=== PATIENT | male | born 1980 | race Caucasian/White ===

== ENCOUNTER 2020-07-26 00:16 | Emergency (ER) | payer BC ==
[~2020-07-26] VITALS: Ht 188 cm; Wt 95.0 kg
[2020-07-26 00:25] VITALS: TEMP 98.3
[2020-07-26 00:54] LABS: HEMATOCRIT 48.9 % (42.0-52.0); HEMOGLOBIN 17.9 g/dl (13.5-18.0); MEAN CELL VOLUME 82 fl (80.0-100.0); MEAN CORPUSCULAR HEMOGLOBIN 30 pg (27.0-31.0); MEAN CORPUSCULAR HGB CONC 37 g/dl (33.0-37.0); MEAN PLATELET VOLUME 10.8 fl (7.4-10.4); PLATELET COUNT 227 K/mm3 (130-400); REDCELL DISTRIBUTION WIDTH-CV 11.5 % (11.5-14.5)
[2020-07-26 01:08] LABS: ALBUMIN 4.6 gm/dL (3.5-5.0); BILIRUBIN,TOTAL 1.9 mg/dL (0.0-1.0); C-REACTIVE PROTEIN 3.1 mg/dL (0.0-0.9); CALCIUM 9.7 mg/dL (8.4-10.2); CREATININE, serum 0.87 (0.66-1.25); POTASSIUM 3.3 mmol/L (3.4-5.0); TOTAL PROTEIN 8.7 gm/dL (6.4-8.2)
[2020-07-26 01:17] LABS: TROPONIN-I 34.1 ng/mL (0.000-0.035)
[2020-07-26 01:19] LABS: LYMPHOCYTE 16 % (20.0-51.0); NEUTROPHILS 71 % (42.0-75.2); PLATELET ESTIMATE NORMAL (NORMAL)
[2020-07-26 01:35] LABS: TSH w REFLEX 1.78 uIU/mL (0.465-4.680)
[2020-07-26 01:47] VITALS: BP 133/91; PULSE 143
== END 2020-07-26 01:49 | disposition short-term general hospital (02) ==
LOC: COL.ER 00:16
PROVIDERS: Emergency Medicine
DX: I31.9 Disease of pericardium, unspecified (principal); Z20.822 Contact with and (suspected) exposure to COVID-19
CPT/HCPCS: J1885; J2543

== ENCOUNTER → 2020-08-19 | Outpatient (CLI) | payer BC | LOC: COL.LAB 08:53 | DX: Z01.812 Encounter for preprocedural laboratory examination (principal); Z20.822 Contact with and (suspected) exposure to COVID-19 ==

== ENCOUNTER 2020-10-15 14:14 | Outpatient (RCR) | payer BC | END 2020-10-25 15:48 | disposition home or self-care (01) | LOC: COL.CR 14:14 | DX: Z48.812 Encounter for surgical aftercare following surgery on the circulatory system (principal); Z95.5 Presence of coronary angioplasty implant and graft ==

== ENCOUNTER 2021-10-21 10:23 | Emergency (ER) | payer SELFPAY ==
[~2021-10-21] VITALS: Ht 185.4 cm; Wt 97.7 kg
[2021-10-21 10:34] VITALS: TEMP 97.7
[2021-10-21] MEDS ORDERED: PRINIVIL2.5 MG PO (10:36)
[2021-10-21] MEDS ORDERED: TOPROL XL 25MG25 MG PO (10:36)
[2021-10-21] MEDS ORDERED: LIPITOR 40MG TA40 MG PO (10:36)
[2021-10-21] MEDS ORDERED: PLAVIX 75MG TAB75 MG PO (10:37)
[2021-10-21 11:14] LABS: BASO # 0.1 K/mm3 (0.0-0.2); BASO % 1.2 % (0.0-2.0); EOS # 0.1 K/mm3 (0.0-0.7); EOS % 1.9 % (0.0-4.0); GRAN # 3.8 K/mm3 (1.4-6.5); HEMATOCRIT 44.3 % (42.0-52.0); HEMOGLOBIN 16.3 g/dl (13.5-18.0); LYMPH # 2.5 K/mm3 (1.2-3.4); LYMPH % 34.3 % (20.0-51.0); MEAN CELL VOLUME 82 fl (80.0-100.0); MEAN CORPUSCULAR HEMOGLOBIN 30 pg (27-31); MEAN CORPUSCULAR HGB CONC 37 g/dl (33.0-37.0); MEAN PLATELET VOLUME 10.1 fl (7.4-10.4); MONO # 0.8 K/mm3 (0.1-0.6); MONO % 11.3 % (1.7-9.3); PLATELET COUNT 224 K/mm3 (130-400); RED BLOOD COUNT 5.39 M/mm3 (4.20-5.60); REDCELL DISTRIBUTION WIDTH-CV 11.1 % (11.5-14.5)
[2021-10-21 11:25] LABS: PROTHROMBIN TIME 11.4 SECONDS (9.7-12.8)
[2021-10-21 11:32] LABS: ALANINE AMINOTRANSFERASE 36 U/L (0-55); ALBUMIN 3.9 gm/dL (3.5-5.0); ALKALINE PHOSPHATASE 113 U/L (40-150); ANION GAP 12 mmol/L (7-16); AST,SGOT 27 U/L (5-34); BILIRUBIN,TOTAL 1.3 mg/dL (0.2-1.2); BLOOD UREA NITROGEN 17 mg/dL (9-21); CALCIUM 9.5 mg/dL (8.4-10.2); CARBON DIOXIDE 19 mmol/L (22-29); CHLORIDE 104 mmol/L (98-107); CREATININE, serum 0.88 mg/dL (0.72-1.25); GLUCOSE 256 mg/dL (70-99); POTASSIUM 4.1 mmol/L (3.5-4.5); SODIUM 135 mmol/L (136-145); TOTAL PROTEIN 7.4 gm/dL (6.2-8.1)
[2021-10-21 11:39] LABS: TROPONIN-I < 0.010 ng/mL (0.00-0.033)
[2021-10-21] MEDS ORDERED: ROBAXIN 75750 MG/TAB PO (15:40)
[2021-10-21] MEDS ORDERED: NORCO 325 MG-51 TAB PO (15:40)
[2021-10-21] MEDS ORDERED: TOPROL XL 50MG50 MG PO (15:42)
[2021-10-21 15:50] VITALS: BP 134/89; PULSE 106
== END 2021-10-21 15:50 | disposition home or self-care (01) ==
LOC: COL.ER 10:23
PROVIDERS: Physician Assistant
DX: S46.912A Strain of unspecified muscle, fascia and tendon at shoulder and upper arm level, left arm, initial encounter (principal); I10 Essential (primary) hypertension; Z95.5 Presence of coronary angioplasty implant and graft; Z87.891 Personal history of nicotine dependence; Z79.82 Long term (current) use of aspirin; Z79.02 Long term (current) use of antithrombotics/antiplatelets; Z28.310 Unvaccinated for COVID-19; X58.XXXA Exposure to other specified factors, initial encounter
CPT/HCPCS: J2270